=== PATIENT | male | born 1960 | race Caucasian/White ===

== ENCOUNTER 2020-02-02 20:52 | Emergency (ER) | payer OTHER, SELFPAY ==
[2020-02-02 21:07] VITALS: BP 187/120; PULSE 107; RESP 18; TEMP 36.9; O2SAT 99; BMI 25.6
--- NOTE | 2020-02-02 21:24 | CT_ITS ---
EXAMINATION: CT ABDOMEN AND PELVIS WITHOUT CONTRAST CLINICAL INFORMATION: Left flank pain COMPARISON: None TECHNIQUE: Multidetector volumetric imaging was performed from the superior aspect of the liver through the pubic symphysis. Sagittal and coronal reformatted images were obtained on the technologist's workstation. This CT examination was performed using dose optimization techniques as appropriate, variously including the following: *Automated exposure control *Adjustment of mA and/or kV according to patient size (this includes techniques or standardized protocols for targeted exams where dose is matched to indication/reason for exam; i.e. extremities or head) *Use of iterative reconstruction technique DLP: 511 mGy-cm FINDINGS: LUNG BASES: The visualized lung bases are unremarkable. LIVER, GALLBLADDER, AND BILIARY TREE: Hepatic steatosis. No focal liver lesions. Gallbladder unremarkable. No intra or extrahepatic biliary dilatation. PANCREAS: Unremarkable. SPLEEN: Unremarkable. ADRENAL GLANDS: Unremarkable. KIDNEYS AND URETERS: The kidneys are normal in size, shape, and attenuation. No hydronephrosis, hydroureter, or calculi seen. No perinephric stranding. BLADDER: Unremarkable. GASTROINTESTINAL TRACT: Small sliding-type hiatal hernia. Stomach otherwise unremarkable. There are couple duodenal diverticulum emanating from the transverse segment. Small bowel otherwise unremarkable. Left colonic diverticulosis. No evidence of diverticulitis or normal appendix. ABDOMINAL WALL: No significant hernia is appreciated. LYMPH NODES: Normal. VASCULAR: Aorta mildly atherosclerotic but normal caliber. PELVIC VISCERA: Unremarkable. OSSEOUS STRUCTURES: Unremarkable. CT/CT abdomen pelvis wo con IMPRESSION: * No acute findings within the abdomen or pelvis to explain the patient's symptomatology. * No urinary calculi, hydronephrosis or perinephric abnormalities to suggest a recently passed calculus. * Left colonic diverticulosis without evidence of diverticulitis. * Hepatic steatosis.
--- NOTE | 2020-02-02 21:29 | ED_ITS ---
HPI - General Adult General Chief complaint: General Medical Stated complaint: Flank Pain Time Seen by Provider: 02/02/20 21:23 History of Present Illness HPI narrative: Patient is a 59-year-old male presented today with having left flank pain. The pain is sharp in nature. Patient never had similar symptoms in the past. It is extreme. History of hypertension. No history of smoking. No history of abdominal aortic aneurysm. No coughing or congestion or upper respiratory symptoms. No diaphoresis. Patient from home. No chest pain or shortness of breath. Never had any kind a CT scan done in the abdomen. No abdominal surgery in the past. Patient from home. Symptoms been ongoing for about 1 day. Related Data Previous Rx's Medication Instructions Recorded lisinopril 10 mg PO DAILY #14 tab 02/02/20 Allergies Allergy/AdvReac Type Severity Reaction Status Date / Time ragweed pollen [RAGWEED] Allergy Unknown SNEEZING,RUNNY Unverified 12/13/19 17:09 NOSE Review of Systems Review of Systems: Constitutional: No Weight loss, No Fever, No Chills, No Night Sweats, No Fatigue, No Malaise ENT/Mouth: No Hearing loss, No Ear Pain, No Nasal Congestion, No Sinus Pain, No Hoarseness, No sore throat, No Rhinorrhea, No Swallowing Difficulty Eyes: No Eye Pain, No Swelling, No Redness, No Foreign Body, No Discharge, No Vision Changes Cardiovascular: No Chest Pain, No SOB, No Dyspnea on Exertion, No Orthopnea, No Edema, No Palpitations Respiratory: No Cough, No Sputum, No Wheezing, No Smoke Exposure, No Dyspnea Gastrointestinal: No Nausea, No Vomiting, No Diarrhea, No Constipation, positive abdominal Pain, No Hematochezia, No Melena Genitourinary: no irregular bleeding, No Dysuria, No Urinary Frequency, No Hematuria, No Urinary Incontinence, No Urgency, No Flank Pain, No Urinary Flow Changes, No Hesitancy Musculoskeletal: No joint pain, No Myalgias, No Joint Swelling Skin: No Skin Lesions, No rash Neuro: No Weakness, No Numbness, No Paresthesias, No Loss of Consciousness, No Dizziness, No Headache Psych: No Anxiety/Panic, No Depression, No SI/HI/AH/VH, No Social Issues, Heme/Lymph: No Bruising, No Bleeding,No Lymphadenopathy Endocrine: No Polyuria, No Polydipsia, No Temperature Intolerance PMFSH Past Medical History Attestation statement: The following information was validated with the patient. Medical History High cholesterol HTN (hypertension) Infected blister of great toe of left foot Melanoma Social History Social History Alcohol intake: current Alcohol intake frequency: 3 or more drinks per day Alcohol type: beer Smoking Status: Never smoker Use of substances other than those prescribed or required for medical reasons: No Advance Directives: No Advance Directives Information Provided: Yes Physical Exam Vital Signs: Vital Signs: Last Vital Signs Temp 98.4 F 02/02/20 21:07 Pulse 91 02/02/20 22:50 Resp 16 02/02/20 22:50 BP 178/93 H 02/02/20 22:50 Pulse Ox 98 02/02/20 22:50 Body Mass Index 25.6 Appearance: Alert. Oriented X3. No acute distress. Eyes: Pupils equal, round and reactive to light. ENT: Pharynx normal. Neck: Normal inspection. Neck supple. No lymph nodes noted. No crepitus CVS: Normal heart rate and rhythm. Pulses normal. Normal S1 and S2 Respiratory: No respiratory distress. Breath sounds normal. No Wheezing. No rales Abdomen: Soft and nontender. No rigidity. No distention. good BS x4 Skin: Skin warm and dry. Normal skin color. Normal skin turgor. Extremities: No lower extremity edema. Neurovascular intact to all extremities. No Lacerations. No Rash Neuro: Oriented X 3. No motor deficit. No sensory deficit. Moving all extermities. No slurred speech Medical Decision Making MDM Narrative Medical decision making narrative: Patient well appearing no distress. CT scan of the abdomen showed no evidence of kidney stone. No diverticulitis. No abscess no perforation. The aorta was of normal caliber. Patient pain control with medication blood pressure came down to 160/98. Will refill patient's blood pressure medication. Will have patient closely follow up on an outpatient basis. Patient's urine was negative for any acute evidence of urinary tract infection. No blood. In stable condition. Lab Data Result diagrams: 02/02/20 21:29 02/02/20 21:29 Labs: Lab Results 02/02/20 02/02/20 02/02/20 Range/Units 21:29 21:29 21:53 WBC 10.8 (4.8-10.8) X10*3/uL RBC 4.60 (4.60-5.80) X10*6/uL Hgb 15.9 (14.0-18.0) g/dl Hct 43.6 (42-52) % MCV 94.8 (80-98) fL MCH 34.6 H (27.0-33.0) pg MCHC 36.5 H (31.0-36.0) g/dl RDW 12.4 (11.0-16.0) % Plt Count 138 L (160-400) X10*3/uL MPV 9.1 L (9.4-12.4) fL Immature Gran % (Auto) 0.5 H (0.0-0.4) % Neut % (Auto) 72.9 (45-73) % Lymph % (Auto) 19.0 L (20-40) % [place] % (Auto) 6.7 (2-11) % Eos % (Auto) 0.3 (0-4) % Baso % (Auto) 0.6 (0-2) % Lymph # (Auto) 2.1 (1.2-4.9) X10*3/uL [place] # (Auto) 0.7 (0.1-1.2) X10*3/uL Eos # (Auto) 0.0 (0.0-0.4) X10*3/uL Baso # (Auto) 0.1 (0.0-0.2) X10*3/uL Abs Immat Gran (auto) 0.05 H (0.00-0.03) X10*3/uL Absolute Neuts (auto) 7.9 (2.0-8.3) X10*3/uL Absolute Nucleated RBC 0.000 (0.0-0.012) X10*3/uL Nucleated RBC % (auto) 0.0 (0.0-0.2) /100WBC Smear Tech's Comments VERIFIED Sodium 139 (135-145) mmol/L Potassium 3.4 (3.3-5.1) mmol/l Chloride 102 (96-108) mmol/L Carbon Dioxide 23 (22-29) mmol/L Anion Gap 17 (12-20) BUN 5 L (9-16) mg/dL Creatinine 0.87 (0.5-1.4) mg/dL Estim Creat Clear Calc 92.0 Estimated GFR > 60 POC Glucose 145 H (60-115) mg/dL Random Glucose 139 H (60-115) mg/dL Calcium 8.8 (8.4-10.2) mg/dL Total Bilirubin 1.8 H (0.0-1.0) mg/dL Direct Bilirubin 0.6 H (0.0-0.5) mg/dL AST 95 H (5-37) U/L ALT 65 H (0-40) U/L Alkaline Phosphatase 106 (39-117) U/L Total Protein 7.3 (6.5-8.0) g/dL Albumin 4.3 (3.5-5.0) g/dL Lipase 37 (8-78) U/L Urine Color Urine Appearance Urine pH (5.0-8.0) Ur Specific [place] (1.005-1.025) Urine Protein (NEG-TRACE) MG/DL Urine Glucose (UA) (NEG) MG/DL Urine Ketones (NEG) MG/DL Urine Blood (NEG) Urine Nitrite (NEG) Ur Leukocyte Esterase (NEG) 02/02/20 Range/Units 22:32 WBC (4.8-10.8) X10*3/uL RBC (4.60-5.80) X10*6/uL Hgb (14.0-18.0) g/dl Hct (42-52) % MCV (80-98) fL MCH (27.0-33.0) pg MCHC (31.0-36.0) g/dl RDW (11.0-16.0) % Plt Count (160-400) X10*3/uL MPV (9.4-12.4) fL Immature Gran % (Auto) (0.0-0.4) % Neut % (Auto) (45-73) % Lymph % (Auto) (20-40) % [place] % (Auto) (2-11) % Eos % (Auto) (0-4) % Baso % (Auto) (0-2) % Lymph # (Auto) (1.2-4.9) X10*3/uL [place] # (Auto) (0.1-1.2) X10*3/uL Eos # (Auto) (0.0-0.4) X10*3/uL Baso # (Auto) (0.0-0.2) X10*3/uL Abs Immat Gran (auto) (0.00-0.03) X10*3/uL Absolute Neuts (auto) (2.0-8.3) X10*3/uL Absolute Nucleated RBC (0.0-0.012) X10*3/uL Nucleated RBC % (auto) (0.0-0.2) /100WBC Smear Tech's Comments Sodium (135-145) mmol/L Potassium (3.3-5.1) mmol/l Chloride (96-108) mmol/L Carbon Dioxide (22-29) mmol/L Anion Gap (12-20) BUN (9-16) mg/dL Creatinine (0.5-1.4) mg/dL Estim Creat Clear Calc Estimated GFR POC Glucose (60-115) mg/dL Random Glucose (60-115) mg/dL Calcium (8.4-10.2) mg/dL Total Bilirubin (0.0-1.0) mg/dL Direct Bilirubin (0.0-0.5) mg/dL AST (5-37) U/L ALT (0-40) U/L Alkaline Phosphatase (39-117) U/L Total Protein (6.5-8.0) g/dL Albumin (3.5-5.0) g/dL Lipase (8-78) U/L Urine Color STRAW Urine Appearance CLEAR Urine pH 7.5 (5.0-8.0) Ur Specific [place] 1.020 (1.005-1.025) Urine Protein NEG (NEG-TRACE) MG/DL Urine Glucose (UA) NEG (NEG) MG/DL Urine Ketones NEG (NEG) MG/DL Urine Blood NEG (NEG) Urine Nitrite NEG (NEG) Ur Leukocyte Esterase NEG (NEG) Discharge Plan Discharge Clinical Impression: Abdominal pain Patient Disposition: Home, Self-Care Instructions: Abdominal Pain (ED) Prescriptions: New lisinopril 10 mg tablet 10 mg PO DAILY Qty: 14 RF: 0 Referrals: Dg Lee [Primary Care Provider] - 2 days
[2020-02-02] MEDS: ondansetron HCL 4 MG/2 ML VIAL IVPUSH (21:32)
[2020-02-02] MEDS: HYDROmorphone HCl 0.5 MG/0.5 ML SYRINGE IVPUSH ×2 (21:32→23:40)
[2020-02-02] MEDS: Ketorolac Tromethamine 30 MG/ML VIAL 15 MG IVPUSH (21:33)
[2020-02-02 21:34] LABS: Basophils Absolute Auto 0.1 X10*3/uL (0.0-0.2); Basophils Percent Auto 0.6 % (0-2); Eosinophils Percent Auto 0.3 % (0-4); Hemoglobin 15.9 g/dl (14.0-18.0); MANUAL DIFF FLAG SCAN; Mean Corpuscular Volume 94.8 fL (80-98); Monocytes Percent Auto 6.7 % (2-11); PLT CLUMP 1; Red Cell Distribution Width 12.4 % (11.0-16.0); SCAN SMEAR FLAG 1
[2020-02-02] MEDS: 0.9 % Sodium Chloride 1,000 ML 999 ML IVCONT (21:34)
[2020-02-02 21:36] LABS: Hematocrit 43.6 % (42-52); Imm Gran Abs Auto 0.05 X10*3/uL (0.00-0.03); Imm Gran Pct Auto 0.5 % (0.0-0.4); Lymphocytes Absolute Auto 2.1 X10*3/uL (1.2-4.9); Mean Corpuscular HGB Conc 36.5 g/dl (31.0-36.0); Mean Corpuscular Hemoglobin 34.6 pg (27.0-33.0); Mean Platelet Volume 9.1 fL (9.4-12.4); Monocytes Absolute Auto 0.7 X10*3/uL (0.1-1.2); Neutrophils Absolute Auto 7.9 X10*3/uL (2.0-8.3); Neutrophils Percent Auto 72.9 % (45-73); Platelet Count 138 X10*3/uL (160-400); White Blood Count 10.8 X10*3/uL (4.8-10.8)
--- NOTE | 2020-02-02 21:40 | PC.NURSE ---
patient a&ox3, iv inserted, labs drawn,vitals obtained, pt c/o lt flank pain radiating to groin area- not tender upon palp, pt hypertensive and tachy- provider aware- no new orders at this time, will continue to monitor.
[2020-02-02 21:57] LABS: Alanine Aminotransferase 65 U/L (0-40); Albumin Level 4.3 g/dL (3.5-5.0); Alkaline Phosphatase 106 U/L (39-117); Anion Gap 17 (12-20); Aspartate Amino Transferase 95 U/L (5-37); Bilirubin Direct 0.6 mg/dL (0.0-0.5); Bilirubin Total 1.8 mg/dL (0.0-1.0); Blood Urea Nitrogen 5 mg/dL (9-16); Calcium 8.8 mg/dL (8.4-10.2); Carbon Dioxide 23 mmol/L (22-29); Chloride 102 mmol/L (96-108); Estimated Glomerular Filt Rate > 60; Glucose Random 139 mg/dL (60-115); Lipase 37 U/L (8-78); Potassium 3.4 mmol/l (3.3-5.1); Sodium 139 mmol/L (135-145); Total Protein 7.3 g/dL (6.5-8.0)
[2020-02-02 21:58] LABS: Glucose, Whole Blood 145 mg/dL (60-115)
[2020-02-02 22:02] LABS: SLIDE REVIEW VERIFIED
[2020-02-02 22:41] LABS: Glucose Urine UA NEG (NEG); Leukocyte Esterase Urine NEG (NEG); Nitrite Urine NEG (NEG); PH 7.5 (5.0-8.0); Urine Blood NEG (NEG); Urine Ketones NEG (NEG); Urine Protein NEG (NEG-TRACE)
[2020-02-02 22:45] LABS: Appearance Urine CLEAR; Color Urine STRAW
[2020-02-02 22:50] VITALS: BP 178/93; PULSE 91; RESP 16; O2SAT 98
[2020-02-02 23:50] VITALS: BP 173/95; PULSE 90; RESP 20; TEMP 36.3; O2SAT 97
== END 2020-02-03 00:11 | disposition home or self-care (01) ==
PROVIDERS: Emergency Provider Emergency Medicine Emergency Medical Services; PCP Hospitalist
DX: R10.9 Unspecified abdominal pain (principal); I10 Essential (primary) hypertension; Z79.899 Other long term (current) drug therapy
CPT/HCPCS: 36415; 74176; 80048; 80076; 81003; 82947; 83690; 85025; 96361; 96374; 96375; 96376; 99284; J1170; J1885; J2405

== ENCOUNTER 2020-09-12 17:48 | Emergency (ER) | payer OTHER, SELFPAY ==
--- NOTE | ~2020-09-12 | XR_ITS ---
EXAMINATION: XR HAND, LEFT CLINICAL INFORMATION: Swollen and bruised COMPARISON: None TECHNIQUE: PA, lateral, and oblique views of the left hand. FINDINGS: There is an acute fracture of the base of the proximal phalanx of the third digit. This has a horizontal as well as vertical component and involvement of the MCP joint is suspected. At the base of the fourth metacarpal, there is a suspicious transverse linear density through this region and on the lateral radiograph, a fracture fragment is seen. These findings are consistent with an additional fracture. No other fractures are seen. XR/XR hand LT min 3V IMPRESSION: 1. Fracture base of proximal phalanx third digit with involvement of the joint space 2. Fracture of the base of the fourth metacarpal.
[2020-09-12 18:16] VITALS: BP 172/95; PULSE 115; RESP 18; TEMP 36.7; O2SAT 98; BMI 25.5
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
[2020-09-12] MEDS: Ibuprofen 600 MG TABLET PO (21:07)
[2020-09-12 21:10] VITALS: BP 154/87; PULSE 82; RESP 18; O2SAT 100
== END 2020-09-12 21:11 | disposition home or self-care (01) ==
PROVIDERS: Emergency Provider Internal Medicine; PCP Hospitalist
DX: S62.613A Displaced fracture of proximal phalanx of left middle finger, initial encounter for closed fracture (principal); S62.315A Displaced fracture of base of fourth metacarpal bone, left hand, initial encounter for closed fracture; S51.811A Laceration without foreign body of right forearm, initial encounter; I10 Essential (primary) hypertension; V49.40XA Driver injured in collision with unspecified motor vehicles in traffic accident, initial encounter; Y93.9 Activity, unspecified; Y92.410 Unspecified street and highway as the place of occurrence of the external cause; Y99.9 Unspecified external cause status; Z79.899 Other long term (current) drug therapy
CPT/HCPCS: 29125; 73130; 99283; 99284

== ENCOUNTER 2020-10-08 07:22 | Outpatient (REF) | payer OTHER, SELFPAY ==
--- NOTE | ~2020-10-08 | XR_ITS ---
EXAMINATION: XR HAND, LEFT CLINICAL INFORMATION: Left hand pain. COMPARISON: Left hand radiographs dated 09/12/2020. TECHNIQUE: PA, lateral, and oblique views of the left hand. FINDINGS: Mildly displaced and comminuted fracture at the base of the 3rd proximal phalanx in unchanged anatomic alignment when compared to the prior radiographs. Mild new bone/callus formation. No new fracture. No dislocation. No osseous erosion. Proximal 4th metacarpal fracture in unchanged anatomic alignment with interval new bone/callus formation. XR/XR hand LT min 3V IMPRESSION: 1. Proximal 3rd phalangeal fracture in unchanged anatomic alignment with mild new bone/callus formation. 2. Proximal 4th metacarpal fracture in unchanged anatomic alignment with new bone/callus formation.
== END 2020-10-08 07:23 | disposition home or self-care (01) ==
LOC: HO.HOSX 07:22
PROVIDERS: Visit Provider Physician Assistant
DX: S62.612A Displaced fracture of proximal phalanx of right middle finger, initial encounter for closed fracture (principal); M25.642 Stiffness of left hand, not elsewhere classified
CPT/HCPCS: 73130

== ENCOUNTER 2020-11-05 06:03 | Outpatient (REF) | payer OTHER, SELFPAY ==
--- NOTE | ~2020-11-05 | XR_ITS ---
EXAMINATION: XR HAND, LEFT CLINICAL INFORMATION: Left hand pain. COMPARISON: Most recent left hand radiographs dated 10/08/2020. TECHNIQUE: PA, lateral, and oblique views of the left hand. FINDINGS: 3rd proximal phalangeal fracture in unchanged anatomic alignment with interval new bone/callus formation. No acute fracture or dislocation. 4th metacarpal fracture in unchanged anatomic alignment with increased new bone/callus formation. XR/XR hand LT min 3V IMPRESSION: Redemonstration of a 3rd proximal phalangeal fracture in unchanged anatomic alignment with interval new bone/callus formation. 4rth metacarpal fracture in unchanged anatomic alignment with increased new bone/callus formation.
== END 2020-11-05 06:04 | disposition home or self-care (01) ==
LOC: HO.HOSX 06:03
PROVIDERS: Visit Provider Physician Assistant
DX: S62.613D Displaced fracture of proximal phalanx of left middle finger, subsequent encounter for fracture with routine healing (principal)
CPT/HCPCS: 73130

== ENCOUNTER 2020-11-25 13:00 | Outpatient (RCR) | payer OTHER, SELFPAY ==
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
--- NOTE | 2021-01-06 10:08 | MHC.OT.DC ---
[address] [phone] F: [phone] Occupational Therapy Discharge Note Provider: Jose Stephens Diagnosis: L DISPLACED FRACTURE OF PROXIMAL PHALANX OF FINGER Date of Evaluation: 10/27/20 Date of Discharge: 01/06/21 Treatments to Date: 4 Cancellations to Date: 2 Discharge Status: Patient Elected to Stop Recommend MD Follow-up Discharge Summary: MR GIBSON WAS SEEN FOR OUTPATIENT OT FOR FOUR VISITS. HE HAS HAD A SIX WEEK LAPSE IN HIS SERVICES AND WILL NEED A NEW SCRIPT SHOULD Pt WISH TO RESUME OT SERVICES. Electronically Signed By: CHRISTOPHE AYERS/aKtia Reviewed/agree with student documentation: N/A Therapist: Please Sign and return to therapist, thank you for your referral.
== END 2021-01-06 10:00 | disposition home or self-care (01) ==
LOC: HO.OT 13:00
PROVIDERS: PCP Hospitalist; Visit Provider Physician Assistant
DX: M25.642 Stiffness of left hand, not elsewhere classified (principal); S62.612D Displaced fracture of proximal phalanx of right middle finger, subsequent encounter for fracture with routine healing
CPT/HCPCS: 97035; 97110; 97140; 97166; 97760

== ENCOUNTER 2021-02-13 07:38 | Outpatient (REF) | payer OTHER, SELFPAY ==
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
== END 2021-02-13 07:39 | disposition home or self-care (01) ==
LOC: HO.HOSX 07:38
PROVIDERS: Visit Provider Physician Assistant
DX: S62.611D Displaced fracture of proximal phalanx of left index finger, subsequent encounter for fracture with routine healing (principal)
CPT/HCPCS: 73130

== ENCOUNTER 2021-03-02 14:30 | Outpatient (RCR) | payer OTHER, SELFPAY ==
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
== END 2021-03-05 11:30 | disposition home or self-care (01) ==
LOC: HO.OT 14:30
PROVIDERS: PCP Hospitalist; Visit Provider Physician Assistant
DX: S62.612D Displaced fracture of proximal phalanx of right middle finger, subsequent encounter for fracture with routine healing (principal); M79.642 Pain in left hand
CPT/HCPCS: 97035; 97110; 97165

== ENCOUNTER → 2021-04-07 10:09 | Outpatient (BNVA) | payer OTHER, SELFPAY | PROVIDERS: Visit Provider Orthopaedic Surgery ==

== ENCOUNTER 2021-05-20 10:30 | Outpatient (RCR) | payer OTHER, SELFPAY ==
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
--- NOTE | 2021-05-20 12:40 | MHC.OT.DC ---
[address] [phone] F: [phone] Occupational Therapy Discharge Note Provider: Anila Fox Diagnosis: FX OF FINGER ON LEFT HAND Date of Evaluation: 04/15/21 Date of Discharge: 05/20/21 Treatments to Date: 5 Discharge Status: Achieved Goals Improved Function Independent with HEP Discharge Summary: MR GIBSON HAS DONE VERY WELL WITH HIS OT RX SESSIONS. HE HAS IMPROVED HIS ROM, STRENGTH AND FUNCTIONAL ABILITIES. HIS STRENGTH INCREASED FROM 28 POUNDS TO 55 POUNDS, AND HE HAS INCREASED TO USING 6 POUND FREE WEIGHTS FOR HIS STRENGTH AND CONDITIONING PROGRAM AT HOME. HE REPORTS MILD PAIN THROUGH HIS MIDDLE FINGER. Pt HAS BEEN EDUCATED ON JOINT PROTECTION STRATEGIES AND USE OF A HOME PARAFFIN UNIT FOR SUSPECT ARTHRITIS. HE IS READY TO TRANSITION TO A HOME BASED PROGRAM AT THIS TIME. D/C OT SERVICES. Electronically Signed By: KOSTAS ZARAGOZA OTR/L Reviewed/agree with student documentation: N/A Therapist: Please Sign and return to therapist, thank you for your referral.
== END 2021-05-20 13:55 | disposition home or self-care (01) ==
LOC: HO.OT 10:30
PROVIDERS: PCP Hospitalist; Visit Provider Physician Assistant
DX: S62.612D Displaced fracture of proximal phalanx of right middle finger, subsequent encounter for fracture with routine healing (principal)
CPT/HCPCS: 97035; 97110; 97165

== ENCOUNTER → 2021-06-02 11:22 | Outpatient (BNVA) | payer OTHER, SELFPAY | PROVIDERS: PCP Hospitalist; Visit Provider Orthopaedic Surgery ==

== ENCOUNTER 2024-02-02 20:23 | Emergency (ER) | payer BC, SELFPAY ==
--- NOTE | ~2024-02-02 | CT_ITS ---
EXAMINATION: CT HEAD WITHOUT CONTRAST CT CERVICAL SPINE WITHOUT CONTRAST CLINICAL INFORMATION: Fall. EtOH. COMPARISON: None available. TECHNIQUE: Contiguous axial imaging was performed from the skull base to vertex without intravenous administration of contrast. Contiguous axial imaging was performed from the upper chest through the skull base without intravenous administration of contrast. Coronal and sagittal reformats were obtained at the acquisition workstation. This CT examination was performed using dose optimization techniques as appropriate, variously including the following: *Automated exposure control. *Adjustment of mA and/or kV according to patient size (this includes techniques or standardized protocols for targeted exams where dose is matched to indication/reason for exam; i.e. extremities or head). *Use of iterative reconstruction technique. DLP: 1379 mGy-cm FINDINGS: Head: There is no evidence of acute intracranial hemorrhage or edematous territorial infarction. Ford-white matter differentiation is preserved. Scattered and partially confluent hypoattenuation in the periventricular and deep white matter are consistent with moderate microangiopathy. Proportional prominence of the ventricles and sulcal spaces without evidence of obstructive hydrocephalus. No abnormal mass effect or midline shift. No extra-axial fluid collections. No acute soft tissue or osseous abnormalities. Mild mucosal thickening of the paranasal sinuses. The mastoid air cells and middle ear cavities are clear. Cervical Spine: The atlantooccipital and atlantoaxial articulations remain well aligned. Straightening of the normal cervical lordosis. Otherwise, there is anatomic alignment of the vertebral bodies and posterior elements. No evidence of acute fracture or subluxation. The vertebral body heights are maintained. Moderate degenerative disc disease from C5-T1. Mild degenerative disc disease at all additional levels. Facet and uncovertebral joint arthropathy leads to osseous encroachment on the neural foramina from C3-C7. There is no prevertebral soft tissue swelling. The thyroid gland and remaining cervical soft tissues are within normal limits. The lung apices demonstrate no abnormalities. CT/CT cervical spine wo IV con IMPRESSION: 1. No evidence of acute intracranial hemorrhage or edematous territorial infarction. Moderate underlying microangiopathy and generalized cerebral volume loss. 2. No evidence of acute fracture or traumatic subluxation of the cervical spine. Moderate multilevel degenerative spondyloarthropathy of the cervical spine. Electronically signed by: Ace Chamberlain DO 02/02/2024 10:51 PM CANDY
--- NOTE | ~2024-02-02 | XR_ITS ---
EXAMINATION: XR CHEST CLINICAL INFORMATION: Hypoxia COMPARISON: None. TECHNIQUE: AP portable upright view of the chest FINDINGS: Lungs are clear. No consolidation, pneumothorax, or pleural effusion. Cardiac and mediastinal contours are normal. Pulmonary vasculature is unremarkable. Degenerative disc disease in the thoracic spine. XR/XR chest 1V IMPRESSION: No acute cardiopulmonary findings Electronically signed by: Hubert Zhu MD 02/02/2024 11:04 PM EST
[2024-02-02 20:45] VITALS: BP 128/73; BP 146/74; PULSE 74; PULSE 86; RESP 16; TEMP 36.3; O2SAT 91; O2SAT 99; BMI 26.5
--- NOTE | 2024-02-02 21:00 | ED.GENADULT ---
HPI - General Adult General Chief complaint: ETOH/Substance Use Stated complaint: ETOH,FALL Time Seen by Provider: 02/02/24 20:47 Source: patient, EMS and RN notes reviewed Mode of arrival: EMS Limitations: other (Acute alcohol intoxication) History of Present Illness ED Provider: Shirley HPI narrative: 63-year-old male presents for evaluation after a fall. Patient reports that he has had issues with his balance for several years. He states that he fell backwards today but did not injure himself in any way. He does not believe he hit his head or lost consciousness. He denies any pain whatsoever. 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 mother who called the ambulance when he fell Related Data Home Medications ?Medication ?Instructions ?Recorded ?Confirmed fenofibrate nanocrystallized 145 145 mg PO DAILY 10/08/20 mg tablet lisinopril 20 mg tablet 20 mg PO DAILY 10/08/20 Previous Rx's ?Medication ?Instructions ?Recorded lisinopril 10 mg tablet 10 mg PO DAILY #14 tabs 02/02/20 ibuprofen 600 mg tablet 600 mg PO Q6H PRN pain #20 tabs 09/12/20 Allergies Allergy/AdvReac Type Severity Reaction Status Date / Time ragweed pollen [RAGWEED] Allergy Unknown SNEEZING,RUNNY Verified 02/02/24 20:48 NOSE Review of Systems Constitutional: Constitutional: Denies body ache(s), Denies chills, Denies fever(s), Reports frequent falls and Denies headache(s) Eyes: Eyes: Denies blurry vision, Denies exophthalmos and Denies floaters ENT: Denies dysphagia, Denies vertigo, Denies dizziness and Denies headache(s) Cardiovascular: Cardiovascular: Denies chest pain and Denies dyspnea Respiratory: Respiratory: Denies cough and Denies dyspnea Gastrointestinal: Gastrointestinal: Denies abdominal pain, Denies dysphagia and Denies vomiting Musculoskeletal: Musculoskeletal: Denies back pain Integumentary/Breasts: Skin/Breast: Denies rash Neurologic: Denies vertigo, Denies dizziness, Reports frequent falls and Denies headache(s) Psychiatric: Psychiatric: Denies anxiety PMFSH Past Medical History Medical History High cholesterol HTN (hypertension) Infected blister of great toe of left foot Melanoma Social History Social History Alcohol intake: current Alcohol intake frequency: 3 or more drinks per day Alcohol type: hard liquor Patient Tobacco Use Status: Never used Tobacco Smoked in Last 30 Days: No Use of substances other than those prescribed or required for medical reasons: No Advance Directives: No Advance Directives Information Provided: Yes Do you have a plan to hurt others: No Plan Current occupational status: employed and unemployed Current occupation: right handed Physical Exam ED Vital Signs: Vital Signs - 24 hr 02/02/24 20:45 02/02/24 22:55 Temperature 97.4 F 97.8 F Pulse Rate 86 85 Respiratory Rate 16 16 Blood Pressure 146/74 H 138/82 Pulse Oximetry 91 L 94 Oxygen Delivery Method Room Air Room Air BMI result Body Mass Index 26.5 Const General: healthy appearing, comfortable, no acute distress, alert and awake Nutritional Appearance: well nourished Orientation/consciousness: patient oriented x3 HENMT Head: Yes normocephalic and Yes atraumatic Throat: Yes posterior oropharynx normal Eyes Eyelids: Yes eyelids normal Conjunctivae: conjunctivae normal Sclerae: sclerae normal Corneas: corneas normal Pupils: Equal, round and reactive pupils present EOM: EOMs intact bilaterally Neck Neck: Yes full ROM Resp Effort & Inspection: normal respiratory effort, able to speak in complete sentences, no audible wheezes and not labored Auscultation: clear to auscultation bilaterally Cardio Rate: regular rate Rhythm: regular rhythm Skin General skin exam: elasticity normal Neuro General: patient oriented x3 Cranial nerves: Yes CN's II-XII intact bilaterally, Yes Equal, round and reactive pupils present and Yes Bilaterally intact EOM present Cognition (Neuro): normal cognition Extrem Other: Moving all extremities well without any obvious deformities Course Reevaluation(s) Reevaluation #1: Patient requesting discharge at this time. His imaging has resulted showing no acute intracranial, cervical spine or intrathoracic pathology. He is ambulating with a steady, even gait, he is stable for discharge at this time Time: 23:11 Medical Decision Making Medical Decision Making MDM Narrative: 63-year-old male presents for evaluation after a fall. He admits to drinking alcohol today. There are no obvious signs of trauma. We will get a CT scan of the brain and cervical spine given he is intoxicated. His oxygen saturation was found to be 91%, we will get a portable chest x-ray. The patient denies any cough or shortness of breath. Given his alcohol consumption he is high risk for aspiration pneumonia. Differential Diagnosis Differential Diagnoses: The differential diagnosis associated with the presentation includes Alcohol intoxication Disequilibrium Intracranial hemorrhage Cervical fracture Gait instability Aspiration pneumonia Radiology Impression Discussion of test interpretation with radiology: I have reviewed the radiologist's reading. Radiologist Impression: FINDINGS: Lungs are clear. No consolidation, pneumothorax, or pleural effusion. Cardiac and mediastinal contours are normal. Pulmonary vasculature is unremarkable. Degenerative disc disease in the thoracic spine. XR/XR chest 1V IMPRESSION: No acute cardiopulmonary findings Electronically signed by: Hubert Zhu MD 02/02/2024 11:04 PM [facility] FINDINGS: Head: There is no evidence of acute intracranial hemorrhage or edematous territorial infarction. Ford-white matter differentiation is preserved. Scattered and partially confluent hypoattenuation in the periventricular and deep white matter are consistent with moderate microangiopathy. Proportional prominence of the ventricles and sulcal spaces without evidence of obstructive hydrocephalus. No abnormal mass effect or midline shift. No extra-axial fluid collections. No acute soft tissue or osseous abnormalities. Mild mucosal thickening of the paranasal sinuses. The mastoid air cells and middle ear cavities are clear. Cervical Spine: The atlantooccipital and atlantoaxial articulations remain well aligned. Straightening of the normal cervical lordosis. Otherwise, there is anatomic alignment of the vertebral bodies and posterior elements. No evidence of acute fracture or subluxation. The vertebral body heights are maintained. Moderate degenerative disc disease from C5-T1. Mild degenerative disc disease at all additional levels. Facet and uncovertebral joint arthropathy leads to osseous encroachment on the neural foramina from C3-C7. There is no prevertebral soft tissue swelling. The thyroid gland and remaining cervical soft tissues are within normal limits. The lung apices demonstrate no abnormalities. CT/CT head/brain wo IV con IMPRESSION: 1. No evidence of acute intracranial hemorrhage or edematous territorial infarction. Moderate underlying microangiopathy and generalized cerebral volume loss. 2. No evidence of acute fracture or traumatic subluxation of the cervical spine. Moderate multilevel degenerative spondyloarthropathy of the cervical spine. Electronically signed by: Ace Chamberlain DO 02/02/2024 10:51 PM [facility] Discharge Plan Discharge Clinical Impression: Alcoholic intoxication, Fall Patient Disposition: Home, Self-Care Instructions: Alcohol Intoxication (ED), Fall Prevention (ED) Additional Instructions: Your workup in the ER today was reassuring. Your CT scan of your brain and cervical spine did not show any evidence to explain your dizziness or injuries from the fall. Your chest x-ray was clear Follow-up with your primary doctor Prescriptions: No Action lisinopril 10 mg tablet 10 mg PO DAILY Qty: 14 0RF ibuprofen 600 mg tablet 600 mg PO Q6H PRN (Reason: pain) Qty: 20 0RF fenofibrate nanocrystallized 145 mg tablet 145 mg PO DAILY lisinopril 20 mg tablet 20 mg PO DAILY Print Language: Upper Sorbian
[2024-02-02 22:55] VITALS: BP 138/82; PULSE 85; RESP 16; TEMP 36.6; O2SAT 94
[2024-02-02 23:33] VITALS: BP 138/82; PULSE 85; RESP 16; TEMP 36.6; O2SAT 94
== END 2024-02-02 23:33 | disposition home or self-care (01) ==
PROVIDERS: Emergency Provider Internal Medicine; PCP Internal Medicine
DX: F10.129 Alcohol abuse with intoxication, unspecified (principal); Y90.9 Presence of alcohol in blood, level not specified; M54.2 Cervicalgia; R51.9 Headache, unspecified; Z79.899 Other long term (current) drug therapy
CPT/HCPCS: 70450; 71045; 72125; 99284

== ENCOUNTER 2024-08-30 14:08 | Outpatient (AMB) | payer MEDICARE, SELFPAY ==
[2024-08-30 14:19] VITALS: BP 142/88; PULSE 80; TEMP 36.6; O2SAT 97; BMI 27.4
--- NOTE | 2024-08-30 14:19 | AM.OFFWIN_ITS ---
Intake Vital Signs 08/30/24 14:19 Height 5 ft 10 in Weight 191 lb 2 oz BMI 27.4 BP 142/88 H Blood Pressure Location Lt brachial Position Sitting Pulse 80 Pulse Source Pulse Oximeter Temp 97.8 F Temp Source Oral Pulse Oximetry (%) 97 Oxygen Delivery Method Room Air Intake Visit Reasons: EP black fly bite on RT eye, swelling Intake Note: Pt presents to the office today for c/o a bite on his right eye that is now swollen. Pt states this started 3 days ago. Patient Tobacco Use Status: Never used Tobacco Allergies ragweed pollen [RAGWEED] Allergy (Unknown, Verified 08/30/24 14:22) SNEEZING,RUNNY NOSE HPI HPI Comments History of Present Illness Details 64 y/o Male patient who presents to the walk in clinic with c/o right eye itching, redness and swelling for 3 days. 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 He has been applying Ice with good relief - he thinks the swelling is getting better. Denies light sensitivity, pain or vision changes. Denies headaches or dizziness. [facility] Medical History (Updated 08/30/24 @ 15:04 by Melani Castro NP) Bacterial conjunctivitis of right eye Infected blister of great toe of left foot High cholesterol HTN (hypertension) Melanoma Social History Alcohol intake: current Alcohol intake frequency: 3 or more drinks per day Alcohol type: hard liquor Patient Tobacco Use Status: Never used Tobacco Current occupational status: employed and unemployed Current occupation: right handed Review of Systems Const All systems reviewed & are unremarkable except as noted in HPI and below Physical Exam Vital Signs: Last Vital Signs Temp 97.8 F 08/30/24 14:19 Pulse 80 08/30/24 14:19 BP 142/88 H 08/30/24 14:19 Pulse Ox 97 08/30/24 14:19 Oxygen Delivery Method Room Air 08/30/24 14:19 BMI result Body Mass Index 27.4 Const General: no acute distress Nutritional Appearance: overweight Orientation/consciousness: patient oriented x3 Eyes Periorbital: periorbital findings abnormal right periorbital swelling, periorbital tenderness and periorbital erythema Conjunctivae: conjunctival abnormal right conjunctival injection and discharge purulent Corneas: corneas normal EOM: EOMs intact bilaterally Direct Ophthalmoscopy: normal light reflex Neuro General: patient oriented x3, gait normal and moves all extremities Psych Speech and movement: Normal speech and movement present Assessment & Plan Assessment & Plan (1) Bacterial conjunctivitis of right eye: Code(s): H10.9 - Unspecified conjunctivitis Plan: Ordered Topical Abx for 7 days. Advised to keep eyes clean and dry Wash eyes with warm clean water May apply Ice or Heat over eye. Medications: New erythromycin Instill ~1 cm ribbon into affected eye 2 times daily for 7 days. 1 appl ophthalmic (eye) BID 7 days 3.5 grams 1RF H10.9 - Unspecified conjunctivitis Coding Level of Care Code Est Pt Level 4 (88787) Diagnoses Bacterial conjunctivitis of right eye H10.9 Time Spent (min) 20
--- OUTSIDE RECORDS SUMMARY | 2024-08-30 16:45 | XMS_ITS | Patient Health Record ---
[facility] Address [address] [place] [address] Care Team Providers Care Nutrition Representative Name Role Phone Dg Lee MD Primary Care Provider UnavailYaniv Loomis Unavailable [phone] Allergies Allergen (clinical drug ingredient) Drug/Non Drug Allergy documented on EMR Reaction Allergy Type Onset Date Status ragweed (uncoded) Unknown Allergy Ac tive Reason For Referral No Information Medications Medication SIG (Take, Route, Frequency, Duration) Notes Start Date End Date Status Fenofibrate 160 MG 1 tablet with a meal Orally Once a day Active Lisinopril 40 MG 1 tablet Orally Once a day Active levoFLOXacin 750 MG 1 tablet Orally Once a day Active rifAMPin 300 MG Orally Acti ve Augmentin 875-125 MG 1 tablet Orally hortencia ry 12 hrs for 10 day(s) 07/10/2015 Not-Taking Clindamycin HCl Not- Taking Cipro 500 MG 1 tablet Orally ever y 12 hrs for 14 days 07/15/2015 Not-Taking Gabapentin 400 MG 1 capsule Orally one po qd hs for 30 days 12/25/2015 Active Keflex 500 MG 1 capsule Orally hortencia ry 12 hrs for 10 day(s) 05/19/2015 Not-Taking Ibuprofen 800 MG 1 tablet Orally Thre e times a day for 14 days 05/19/2015 Active Social History Tobacco Use: Social History Observation Description Date Details (start date - stop date) Never Smoker NA - NA Tobacco Use/Smoking Question Answer Notes Are you a: nonsmoker Additional Findings: Tobacco Non-User Current no n-smoker Alcohol Screen Question Answer Notes Did you have a drink contain ing alcohol in the past year? Yes How often did you have a dri nk containing alcohol in the past year? 4 or more times a week (4 points) Points 4 Interpretation Positive Tobacco use other than smoking: Question Answer Notes Are you an other tobacco user? No Problems Problem Type SNOMED Code ICD Code Onset Dates Problem Status W/U Status Risk Notes Problem Neuralgia (63529603) Neuralgia and neuritis, unspecified (M79.2) Active confirmed Plan Of Treatment Pending Test Test Name Order Date X ray : Foot, left 2V 06/02/2015 X ray : Foot, left 2V 06/12/2015 X ray : Foot, left 2V 07/07/2015 X ray : Foot, left 2V 12/25/2015 *CBC With Differential/Platelet 07/10/19 16 *CBC With Differential/Platelet 07/11/19 16 *Sedimentation Rate-Westergren 6 *Sedimentation Rate-Westergren 6 *Wound Culture 07/10/2015 X ray : Foot, left 3V 07/10/2015 X ray : Foot, left 3V 07/29/2015 X ray : Foot, left 3V 08/06/2015 X ray : Foot, left 3V 09/08/2015 X ray : Foot, left 3V 06/26/2015 X ray : Foot, left 3V 12/16/2014 X ray : Foot, right 3V 12/16/2014 17587- Debride <25 sq cm 07/29/2015 71251- Debride <25 sq cm 03/26/2015 28370- Debride <25 sq cm 07/07/2015 84518- Debride <25 sq cm 06/26/2015 69640- Debride <25 sq cm 04/10/2015 57466- Debride <25 sq cm 04/30/2015 51317- Debride <25 sq cm 05/19/2015 50679-[id number] SKIN/TISSUE 03/26/2015 80701-[id number] SKIN/TISSUE 12/16/2014 54349-[id number] SKIN/TISSUE 01/03/2015 95264-OOZGFLN SKIN/TISSUE 01/20/2015 91865-REMPLPI SKIN/TISSUE 02/13/2015 72784-OKLGKDY SKIN/TISSUE 02/26/2015 27381-[id number] SKIN/TISSUE 03/12/2015 87587-DQKRWWY SKIN/TISSUE 07/29/2015 60239-WIWJASO SKIN/TISSUE 07/11/2015 28328-[id number] SKIN/TISSUE 07/15/2015 05792- I&D ABSCESS-COMPLICATED,MULTI Insurance Providers Payer Name Payer Address Payer Phone Subscriber Number Group Number Insured Name Patient Relationship to Insured Coverage Start Date Coverage End Date [facility] [address] [place] [address] [id number] [address] Spouse - patient is the spouse of the insured Medical (General) History Medical History History ICD Code Cancer High blood pressure Poor circulation Chicken pox Surgical History Surgery Date(Month/Year) melanoma excision hammer toe 05/2015 Sesamoidectomy 05/2015 condylectomy 05/2015 ulcer - left 05/2015 foot surgery 05-29-2015 [place] History Reason [place] [facility] [place]
== END 2024-08-30 15:04 | disposition home or self-care (01) ==
PROVIDERS: PCP Internal Medicine; Visit Provider Nurse Practitioner Family
DX: H10.9 Unspecified conjunctivitis (principal)

== ENCOUNTER → 2024-08-30 14:08 | Outpatient (BNVA) | payer MEDICARE, SELFPAY | PROVIDERS: PCP Internal Medicine; Visit Provider Nurse Practitioner Family | DX: H10.9 Unspecified conjunctivitis (principal) | CPT/HCPCS: 99212 ==

== ENCOUNTER 2024-08-31 11:30 | Outpatient (AMB) | payer MEDICARE, SELFPAY ==
[2024-08-31 11:46] VITALS: BP 142/72; PULSE 78; RESP 16; TEMP 36.6; O2SAT 97; BMI 27.1
--- NOTE | 2024-08-31 11:46 | MHC.OFFWIV ---
Intake Vital Signs 08/31/24 11:46 Height 5 ft 10 in Weight 189 lb BMI 27.1 BP 142/72 H Blood Pressure Location Lt brachial Position Sitting Respiration 16 Pulse 78 Pulse Source Pulse Oximeter Temp 97.9 F Temp Source Oral Pulse Oximetry (%) 97 Oxygen Delivery Method Room Air Intake Visit Reasons: EP ? poison Mickie on both eyes Intake Note: Pt is here today c/o ? poison mickie on both eyes: was seen yesterday at our walkin now it has spread to the other eye Patient Tobacco Use Status: Never used Tobacco Allergies ragweed pollen [RAGWEED] Allergy (Unknown, Verified 08/30/24 14:22) SNEEZING,RUNNY NOSE HPI HPI Comments History of Present Illness Details Patient is a 64yo M who presents with possible poison mickie rash He was see yesterday and assumed he had a black fly bite to R lateral orbit Was given erythromycin ointment without relief He has noticed spread to other eye and worsening R eye and R ear redness/swelling since this am Associated itching and minimal pain He said vision is okay, no changes aside from upper eyelid swelling No fever or chills No difficulty swallowing, tongue edema or oral involvement + yellow drainage from area Denies rash similar in past 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 Denies wood or leaf burning/aeration of irritant No pain with eye movements [facility] Medical History (Updated 08/31/24 @ 12:08 by Mehnaz Arredondo PA-C) Bacterial conjunctivitis of right eye Infected blister of great toe of left foot High cholesterol HTN (hypertension) Melanoma Social History Alcohol intake: current Alcohol intake frequency: 3 or more drinks per day Alcohol type: hard liquor Patient Tobacco Use Status: Never used Tobacco Current occupational status: employed and unemployed Current occupation: right handed Review of Systems Const Denies chills and Denies fever(s) Eyes Denies change in vision, Reports irritation and Reports itchy eyes ENT Denies otalgia (but + rash and itching to outside of R ear), Denies mouth lesions, Denies sinus pain, Denies sore throat, Denies throat swelling and Denies tongue swelling Card Denies dyspnea Resp Denies dyspnea and Denies wheezing Skin/Breast Reports erythema, Reports rash, Reports skin pain and Reports skin swelling Aller/Immun Reports itchy eyes, Denies throat swelling, Denies tongue swelling and Denies wheezing Physical Exam Vital Signs: Last Vital Signs Temp 97.9 F 08/31/24 11:46 Pulse 78 08/31/24 11:46 Resp 16 08/31/24 11:46 BP 142/72 H 08/31/24 11:46 Pulse Ox 97 08/31/24 11:46 Oxygen Delivery Method Room Air 08/31/24 11:46 BMI result Body Mass Index 27.1 General: Non-toxic, NAD. Speaking full sentences. Skin: Warm dry throughout. Pt has moderate to severe edema to R periorbital region including upper and lower eyelid. Pupil is visible at rest without ptosis or exopthalmus. + dry erythematous rash noted to periorbital region bilaterally, mild lower forehead and R lower earlobe. No rash to extremities. + yellow crusting assocuared. No lesions/rash to perioral region or lower neck Eye: EOMI, PERRLA. No entrapment or nystagmus. No pain with EOMs HENT: Airway patent. Uvula midline. No pharyngeal erythema or edema. No LABORATORY MONITOR. No tongue edema Respiratory: No tachypnea Cardiac: Regular rate MSK: Full ROM extremities. Neurology: Alert. No aphasia or facial droop. Gait without abnormality Psych: Good mood and affect Assessment & Plan Assessment & Plan (1) Contact dermatitis due to poison mickie: Code(s): L23.7 - Allergic contact dermatitis due to plants, except food Plan: Patient seen and evaluated. Discontinue erythromycin ointment Moderare to severe facial contact derm rash concerning for poison mickie/sumac exposure No sign of preseptal or orbital cellulitis at this time but will cover with doxy (discussed take with food and avoid sun exposure) Keep head elevated Clean hands and pillow cases Don't rub Prednisone with doos as directed; avoid alcohol or nsaids Discussed ER s/s such as worsening rash, eye involvement, fevers, vision changes, tongue edema or throat tightness or SOB to go to ER. 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
--- OUTSIDE RECORDS SUMMARY | 2024-08-31 12:15 | XMS_ITS | Patient Health Record ---
Author [facility] Address [address] [place] [address] Care Team Providers Care Policy Cancellation Clerk Name Role Phone Dg Lee MD Primary Care Provider UnavailYaniv Loomis Unavailable [phone] Allergies Allergen (clinical drug ingredient) Drug/Non Drug [...] Status W/U Status Risk Notes Problem Neuralgia (09632650) Neuralgia and neuritis, unspecified (M79.2) Active confirmed [...] X ray : Foot, right 3V 12/16/2014 47105- Debride <25 sq cm 07/29/2015 27953- Debride <25 sq cm 03/26/2015 81287- Debride <25 sq cm 07/07/2015 22056- Debride <25 sq cm 06/26/2015 81880- Debride <25 sq cm 04/10/2015 39928- Debride <25 sq cm 04/30/2015 23431- Debride <25 sq cm 05/19/2015 18520-EBVUFIU SKIN/TISSUE 03/26/2015 89444-EANQIAY SKIN/TISSUE 12/16/2014 03888-HOWAIBV SKIN/TISSUE 01/03/2015 40521-[id number] SKIN/TISSUE 01/20/2015 78169-DRCBOES SKIN/TISSUE 02/13/2015 66385-[id number] SKIN/TISSUE 02/26/2015 07953-MRZVDJV SKIN/TISSUE 03/12/2015 02216-EYMQIUI SKIN/TISSUE 07/29/2015 24523-RLBVPFC SKIN/TISSUE 07/11/2015 22108-[id number] SKIN/TISSUE 07/15/2015 51686- I&D ABSCESS-COMPLICATED,MULTI Insurance Providers Payer Name Payer Address Payer Phone Subscriber Number Group Number Insured Name Patient Relationship to Insured Coverage Start Date Coverage End Date [facility] [address] [place] [address] [phone] [id number] Spouse - patient is the spouse of the insured Medical (General) History Medical History History ICD Code Cancer High blood pressure Poor circulation Chicken pox Surgical History Surgery Date(Month/Year) melanoma excision hammer toe 05/2015 Sesamoidectomy 05/2015 condylectomy 05/2015 ulcer - left 05/2015 foot surgery 05-29-2015 Hospitalization History Reason Date(Month/Year) [facility] [place]
== END 2024-08-31 12:21 | disposition home or self-care (01) ==
PROVIDERS: PCP Internal Medicine; Visit Provider Physician Assistant
DX: L23.7 Allergic contact dermatitis due to plants, except food (principal)

== ENCOUNTER → 2024-08-31 11:30 | Outpatient (BNVA) | payer MEDICARE, SELFPAY | PROVIDERS: PCP Internal Medicine; Visit Provider Physician Assistant | DX: L23.7 Allergic contact dermatitis due to plants, except food (principal) | CPT/HCPCS: 99212 ==